=== PATIENT | male | born 1990 | race Caucasian/White ===

== ENCOUNTER 2022-11-29 08:07 | Emergency (ER) | payer OTHER, SELFPAY ==
--- NOTE | ~2022-11-29 | XR_ITS ---
Left elbow Technique: AP, oblique, and lateral views were obtained. Clinical History: Pain Findings: There is a minimally displaced, intra-articular fracture of the radial head. There is assoc iated moderate elbow joint effusion with displacement of the anterior and posterior fat pads. No disl ocation evident. No other fracture seen. Impression: Minimally displaced intra-articular fracture of the radial head. Associated moderate elbow joint effusion. Reviewed, dictated and finalized at location . Impression: Minimally displaced intra-articular fracture of the radial head. Associated moderate elbow joint effusion.
[2022-11-29 08:18] VITALS: BP 125/78; PULSE 74; RESP 16; TEMP 37.1; O2SAT 100
--- NOTE | 2022-11-29 08:26 | ED.UPPEXIN ---
HPI - Extremity Injury (Upper) General Chief Complaint: Extremity Injury, Upper Stated Complaint: Left Elbow Pain Time Seen by Provider: 11/29/22 08:26 Source: patient Mode of arrival: ambulatory Limitations: no limitations History of Present Illness HPI narrative: 32-year-old male presents complaint pain to left elbow. Reports last night while playing softball he was running into home plate, slipped and fell On to left side. Has abrasion to left hip and left thigh. Reports decreased range of motion to left elbow. Distal neurovascularly intact. All systems reviewed and negative except as noted above. Related Data Home Medications Medication Instructions Recorded Confirmed rosuvastatin 20 mg tablet 20 mg PO DAILY 11/29/22 11/29/22 Allergies Allergy/AdvReac Type Severity Reaction Status Date / Time No Known Allergies Allergy Verified 11/29/22 08:40 Review of Systems Review of Systems: CONSTITUTIONAL: Denies fever, chills, or sweats. EYES: Denies visual changes, redness, or discharge. ENT: Denies rhinorrhea, congestion, sore throat, or otalgia. CARDIOVASCULAR: Denies chest pain, palpitations, or edema. RESPIRATORY: Denies cough or dyspnea. GASTROINTESTINAL: Denies abdominal pain, nausea, vomiting, or diarrhea. GENITOURINARY: Denies dysuria or hematuria. SKIN: Denies rash or itching. MUSCULOSKELETAL: Denies back pain or myalgia. Reports pain to left elbow. NEUROLOGIC: Denies headache, numbness, or weakness. PSYCHIATRIC: Denies anxiety or depression. All other systems reviewed are negative, except as documented in HPI. PMFSH Comments At time of signature, agree with nursing past medical, surgical, social and family history. There is no relevant family history pertinent to the presenting complaint. Exam Narrative: GENERAL: This is a well-nourished, well-developed patient, in no apparent distress. HEAD: normocephalic, atraumatic. EYES: PERRL. Sclera clear/white. Vision is grossly intact. EARS: External ears normal NOSE: External nose normal NECK: Neck supple, non-tender without lymphadenopathy, masses or thyromegaly. CARDIOVASCULAR: Regular rate and rhythm without murmurs, gallops, or rubs. RESPIRATORY: Clear to auscultation. Breath sounds equal bilaterally. No wheezes, rales, or rhonchi. SKIN: warm, Dry, intact with no suspicious lesions or rash, good texture and turgor. NEURO: awake, alert, and oriented to person, place and time. There were no obvious focal neurologic abnormalities. EXTREMITIES: Tenderness on palpation to left radial head. Decreased range of motion at left elbow. Unable to completely flex or extend. 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 Distal neurovascularly intact. Left radial pulse 2 +. Course Course Level of Care: Express Care Visit Vital Signs Vital signs: Vital Signs Temperature 37.1 C 11/29/22 08:18 Pulse Rate 74 11/29/22 08:18 Respiratory Rate 16 11/29/22 08:18 Blood Pressure 125/78 11/29/22 08:18 Pulse Oximetry 100 11/29/22 08:18 Oxygen Delivery Room Air 11/29/22 08:18 Temperature 37.1 C 11/29/22 08:18 Pulse Rate 74 11/29/22 08:18 Respiratory Rate 16 11/29/22 08:18 Blood Pressure 125/78 11/29/22 08:18 Pulse Oximetry 100 11/29/22 08:18 Oxygen Delivery Room Air 11/29/22 08:18 Reviewed MDM - Extremity Injury (Upper) MDM Narrative Medical decision making narrative: Patient is aware of diagnosis, understands and agrees to treatment plan. Anticipatory guidance given. Patient agrees to follow-up as directed and is aware of reasons to seek care at the emergency department. Portions of this record may have been created with voice recognition software discussed x-ray results with patient. Patient placed in sling to left upper extremity. Referred to Dr. Shah for orthopedic follow-up. Imaging Data My impression: Agree with radiologist Radiologist's impression: Left elbow Technique: AP, oblique, and late
== END 2022-11-29 08:53 | disposition home or self-care (01) ==
PROVIDERS: Emergency Provider Nurse Practitioner Family
DX: S52.122A Displaced fracture of head of left radius, initial encounter for closed fracture (principal); W01.0XXA Fall on same level from slipping, tripping and stumbling without subsequent striking against object, initial encounter; Y93.64 Activity, baseball
CPT/HCPCS: 73080; 99214; G0463

== ENCOUNTER 2023-11-09 16:48 | Emergency (ER) | payer OTHER, SELFPAY ==
[2023-11-09 17:03] VITALS: BP 118/70; PULSE 61; RESP 18; TEMP 36.7; O2SAT 99
[2023-11-09 17:04] VITALS: BP 118/70; PULSE 61; RESP 18; TEMP 36.7; O2SAT 99
--- NOTE | 2023-11-09 17:17 | ED.NAVMDI ---
HPI - Nausea/Vomiting/Diarrhea General Chief complaint: Upper Respiratory Infection Stated complaint: nausea Time Seen by Provider: 11/09/23 16:57 Source: patient Mode of arrival: ambulatory Limitations: no limitations History of Present Illness HPI Narrative: Patient is a 33-year-old male who presents with 6 days of nausea and abdominal cramping. Patient states he had multiple episodes of vomiting Sunday night and Sunday. With some episodes of vomiting and diarrhea Sunday and Sunday. Patient has not had any vomiting or diarrhea since Sunday. Patient states he has been eating injury. Denies any fever, chills. Did not want testing for strep, flu, COVID. Related Data Home Medications Medication Instructions Recorded Confirmed rosuvastatin 20 mg tablet 20 mg PO DAILY 11/29/22 07/04/23 Allergies Allergy/AdvReac Type Severity Reaction Status Date / Time No Known Allergies Allergy Verified 11/09/23 17:03 Review of Systems Review of Systems: All systems reviewed & are unremarkable except as noted in HPI and below Constitutional: Constitutional: Denies body ache(s), Denies chills, Denies fatigue, Denies fever(s), Denies headache(s), Denies malaise and Denies weakness Eyes: Eyes: Denies blurry vision, Denies irritation and Denies loss of vision ENT: Denies otalgia, Denies headache(s), Denies nasal discharge, Denies sinus pain and Denies sore throat Cardiovascular: Cardiovascular: Denies chest pain, Denies irregular heart rhythm and Denies dyspnea Respiratory: Respiratory: Denies dyspnea Gastrointestinal: Gastrointestinal: Reports abdominal pain (cramping), Denies melena, Denies hematochezia, Denies diarrhea, Reports nausea and Denies vomiting Musculoskeletal: Musculoskeletal: Denies back pain, Denies myalgias and Denies arthralgias Integumentary/Breasts: Skin/Breast: Denies pruritus and Denies rash Neurologic: Denies headache(s), Denies loss of vision and Denies weakness Psychiatric: Psychiatric: Reports no additional psychiatric complaints Endocrine: Endocrine: Denies fatigue PMFSH Family History Family History Unknown Cerebrovascular accident Hyperlipidemia Social History Social History Smoking status: Never smoker Comments At time of signature, agree with nursing past medical, surgical, social and family history. There is no relevant family history pertinent to the presenting complaint. Exam Const: General: cooperative, healthy appearing, comfortable, no acute distress and well nourished Nutritional Appearance: well nourished Orientation/consciousness: patient oriented x3 Limitations: no limitations HENMT: Head: normal to inspection, normocephalic and atraumatic Ears: hearing grossly normal bilaterally and external ears normal Face/Nose/Sinus: Normal external nose present, normal facial exam and face symmetric Face and sinus: normal facial exam and face symmetric Mouth: Yes lip normal Eyes: General: appearance normal, both eyes and all related structures Alignment and Position: alignment normal and position normal Periorbital: periorbital findings normal Eyelids: eyelids normal Pupils: Equal, round and reactive pupils present EOM: EOMs intact bilaterally Neck: Neck: normal visual inspection, full ROM and supple Chest: Chest palpation & inspection: normal inspection of the chest Resp: Effort & Inspection: normal respiratory effort and able to speak in complete sentences Auscultation: clear to auscultation bilaterally Cardio: Rate: regular rate Rhythm: regular rhythm Heart sounds: S1 normal heart sound present and S2 normal heart sound present GI: Inspection: normal to inspection GI Palp: No abdominal tenderness and Yes Soft to palpation Skin: General skin exam: normal color and no rashes or lesions noted Neuro: General: patient oriented x3 and moves all extremities
== END 2023-11-09 17:21 | disposition home or self-care (01) ==
PROVIDERS: Emergency Provider Nurse Practitioner Family
DX: K52.9 Noninfective gastroenteritis and colitis, unspecified (principal)
CPT/HCPCS: 99213; G0463